=== PATIENT | female | born 1955 | race Caucasian/White ===

== ENCOUNTER 2024-04-21 10:48 | Emergency (ER) | payer MEDICARE, BC ==
[2024-04-21] MEDS: Take Home: Doxycycline 100 MG Cap, 4 Cap Pack PO ONE (12:04)
== END 2024-04-21 12:07 | disposition home or self-care (01) ==
LOC: DL.ED 10:48
DX: J06.9 Acute upper respiratory infection, unspecified (principal); B97.89 Other viral agents as the cause of diseases classified elsewhere
CPT/HCPCS: 87428; 99284; A9270; 99283